=== PATIENT | male | born 1970 | race Caucasian/White ===

== ENCOUNTER → 2016-09-07 | Outpatient (CLI) | payer BC ==
--- NOTE | 2016-09-07 16:39 | XR ---
EXAMINATION TYPE: XR chest special view(s) DATE OF EXAM: 09/07/2016 COMPARISON: 09/04/2016 HISTORY: Abnormal x-ray TECHNIQUE: Frontal and lateral views of the chest are obtained. FINDINGS: There is a stable appearing right-sided pneumothorax measuring approximately 5-10%. There is increase in size and expiration measuring 15%. Left lung is clear there does appear to be tiny rig ht-sided pleural effusion. No interstitial edema. Heart size stable. IMPRESSION: 1. There is a small right-sided pneumothorax with no mediastinal deviation. Measures 5-10% on inspira tion and increases to 15% on expiration. Correlate clinically. No mediastinal deviation.
== END ==
LOC: RADXRMAIN 16:10
PROVIDERS: ATTEND Family Medicine
DX: J93.9 Pneumothorax, unspecified (principal)
CPT/HCPCS: 71035

== ENCOUNTER 2016-12-14 09:40 | Emergency (ER) | payer BC ==
[2016-12-14 09:46] VITALS: TEMP 97.8
[2016-12-14] MEDS ORDERED: SODIUM CHLORIDE 0.9% 1,000 ML IV STA (10:06)
--- NOTE | 2016-12-14 10:11 | ED ---
General Adult HPI - General Source: patient, RN notes reviewed Mode of arrival: ambulatory Limitations: no limitations <Trevor Patel - Last Filed: 12/14/16 11:48> <Russ Ferrell - Last Filed: 12/14/16 20:38> - General Chief complaint: Recheck/Abnormal Lab/Rx Stated complaint: Abnormal CT sent by PCP Time Seen by Provider: 12/14/16 09:51 - History of Present Illness Initial comments: Patient is a 46-year-old male who presents emergency room today with a chief complaint of having an abnormal CAT scan obtained earlier this morning. He states he was on his way to work when he was called and. Come back to the emergency room. His CT report. Patient states she's been experiencing some cough congestion over the last 2 weeks. He doesn't speak production as been clear in color. He admits that at times she's been expressing some chest pain. He states that last anywhere from a few minutes to approximately 10 appointment. Mostly in the left side of his chest wall both anteriorly and posteriorly at times. Patient denies anything that seems to make it better or worse. He denies any other complaints. He states is not having any pain or discomfort at this time. Patient denies any recent fever, chills, shortness of breath, back pain, abdominal pain, nausea or vomiting, numbness or tingling, dysuria or hematuria, constipation or diarrhea, headaches or visual changes, or any other complaints. (Trevor Patel) - Related Data Home Medications Medication Instructions Recorded Confirmed Levofloxacin [Levaquin] 500 mg PO DAILY 12/14/16 12/14/16 Allergies Allergy/AdvReac Type Severity Reaction Status Date / Time No Known Allergies Allergy Verified 12/14/16 09:53 Review of Systems ROS Other: All systems not noted in ROS Statement are negative. <Trevor Patel - Last Filed: 12/14/16 11:48> ROS Other: All systems not noted in ROS Statement are negative. <Russ Ferrell - Last Filed: 12/14/16 20:38> ROS Statement: Those systems with pertinent positive or pertinent negative responses have been documented in the HPI. Past Medical History Additional Past Medical History / Comment(s): collapsed left lung, pneumonia History of Any Multi-Drug Resistant Organisms: None Reported Past Surgical History: Tonsillectomy Past Psychological History: No Psychological Hx Reported Smoking Status: Never smoker Past Alcohol Use History: None Reported Past Drug Use History: None Reported <Trevor Patel - Last Filed: 12/14/16 11:48> General Exam Limitations: no limitations <Trevor Patel - Last Filed: 12/14/16 11:48> <Russ Ferrell - Last Filed: 12/14/16 20:38> - General Exam Comments Initial Comments: General: The patient is awake and alert, in no distress, and does not appear acutely ill. Eye: Pupils are equal, round and reactive to light, extra-ocular movements are intact. No nystagmus. There is normal conjunctiva bilaterally. No signs of icterus. Ears, nose, mouth and throat: There are moist mucous membranes and no oral lesions. Neck: The neck is supple, there is no tenderness or JVD. Cardiovascular: There is a regular rate and rhythm. No murmur, rub or gallop is appreciated. Respiratory: Lungs are clear to auscultation, respirations are non-labored, breath sounds are equal. No wheezes, stridor, rales, or rhonchi. Gastrointestinal: Soft, non-distended, non-tender abdomen without masses or organomegaly noted. There is no rebound or guarding present. No CVA tenderness. Bowel sounds are unremarkable. Musculoskeletal: Normal ROM, no tenderness. Strength 5/5. Sensation intact. Pulses equal bilaterally 2+. Neurological: A&O x 3. CN II-XII intact, There are no obvious motor or sensory deficits. Coordination appears grossly intact. Speech is normal. Skin: Skin is warm and dry and no rashes or lesions are noted. Psychiatric: Cooperative, appropriate mood & affect, normal judgment. (Trevor Patel) Course <Trevor Patel - Last Filed: 12/14/16 11:48> <Russ Ferrell - Last Filed: 12/14/16 20:38> Vital Signs 12/14/16 12/14/16 12/14/16 09:42 11:45 12:15 Temperature 97.8 F Pulse Rate 72 79 71 Respiratory 18 16 16 Rate Blood Pressure 136/95 114/59 112/71 O2 Sat by Pulse 99 100 99 Oximetry - Reevaluation(s) Reevaluation #1: 12/14/16 10:10 Patient examined here the emergency room shows no signs of distress. His computed tomography scan has been reviewed shows 1. Numerous large blebs are seen scattered throughout the lungs bilaterally. However there appeared to be evidence of a pneumomediastinum. A Tiny Right-Sided Pneumothorax along the Medial Aspect along. Approximate 5%. Patient Has Been Placed on a Nonrebreather Here in Emergency Room. He Has No Complaints Currently. Labs Are Pending. (Trevor Patel) Medical Decision Making - Lab Data Result diagrams: 12/14/16 10:10 12/14/16 10:10 <Trevor Patel - Last Filed: 12/14/16 11:48> - Lab Data Result diagrams: 12/14/16 10:10 12/14/16 10:10 <Russ Ferrell - Last Filed: 12/14/16 20:38> - Medical Decision Making Patient reexamined at this time shows no signs of distress. He was seen by attending physician Dr. Chen. The emergency room who did discuss the case with gore inserter on-call Dr. Cali. States that patient's vitals are stable.. He is pain-free. He does have a history of a pneumothorax several years ago with chest tube placed had a 5% pneumothorax just a few months ago back in September 2016. His CT shows findings of a stable pneumothorax with some pneumomediastinum. At this time is felt that he is able to be discharged home and follow-up with gore inserter in the office. (Trevor Patel) 46-year-old male with history of spontaneous pneumothorax presenting with presents from outpatient CT. Patient does have small pneumothorax as well as mediastinal air. Patient's primary care physician was unable to evaluate the CT findings because he is out of toe. Patient was asked to present to the emergency department. Patient has no complaints. He has a history of pneumothorax with small 5-10% residual. No chest pain. No difficulty breathing. I reviewed the CT results with Dr. Cali, he does not believe there is pneumothorax. He is not concerned about mediastinal air. He is to evaluate the patient on an outpatient basis. Patient is agreeable with this plan. (Russ Ferrell) - Lab Data Lab Results 12/14/16 12/14/16 12/14/16 Range/Units 10:10 10:10 10:10 WBC 6.5 (3.8-10.6) k/uL RBC 5.28 (4.30-5.90) m/uL Hgb 15.9 (13.0-17.5) gm/dL Hct 46.5 (39.0-53.0) % MCV 88.0 (80.0-100.0) fL MCH 30.1 (25.0-35.0) pg MCHC 34.2 (31.0-37.0) g/dL RDW 14.0 (11.5-15.5) % Plt Count 284 (150-450) k/uL Neutrophils % 60 % Lymphocytes % 26 % Monocytes % 6 % Eosinophils % 6 % Basophils % 1 % Neutrophils # 3.9 (1.3-7.7) k/uL Lymphocytes # 1.7 (1.0-4.8) k/uL Monocytes # 0.4 (0-1.0) k/uL Eosinophils # 0.4 (0-0.7) k/uL Basophils # 0.1 (0-0.2) k/uL PT 10.3 (9.0-12.0) sec INR 1.0 (<1.2) APTT 25.2 (22.0-30.0) sec Sodium 142 (137-145) mmol/L Potassium 3.9 (3.5-5.1) mmol/L Chloride 106 (98-107) mmol/L Carbon Dioxide 24 (22-30) mmol/L Anion Gap 12 mmol/L BUN 13 (9-20) mg/dL Creatinine 0.93 (0.66-1.25) mg/dL Est GFR (MDRD) Af Amer >60 (>60 ml/min/1.73 sqM) Est GFR (MDRD) Non-Af >60 (>60 ml/min/1.73 sqM) Glucose 117 H (74-99) mg/dL Calcium 9.5 (8.4-10.2) mg/dL Total Bilirubin 0.6 (0.2-1.3) mg/dL AST 21 (17-59) U/L ALT 33 (21-72) U/L Alkaline Phosphatase 73 (38-126) U/L Troponin I (0.000-0.034) ng/mL Total Protein 6.9 (6.3-8.2) g/dL Albumin 4.4 (3.5-5.0) g/dL 12/14/16 Range/Units 10:10 WBC (3.8-10.6) k/uL RBC (4.30-5.90) m/uL Hgb (13.0-17.5) gm/dL Hct (39.0-53.0) % MCV (80.0-100.0) fL MCH (25.0-35.0) pg MCHC (31.0-37.0) g/dL RDW (11.5-15.5) % Plt Count (150-450) k/uL Neutrophils % % Lymphocytes % % Monocytes % % Eosinophils % % Basophils % % Neutrophils # (1.3-7.7) k/uL Lymphocytes # (1.0-4.8) k/uL Monocytes # (0-1.0) k/uL Eosinophils # (0-0.7) k/uL Basophils # (0-0.2) k/uL PT (9.0-12.0) sec INR (<1.2) APTT (22.0-30.0) sec Sodium (137-145) mmol/L Potassium (3.5-5.1) mmol/L Chloride (98-107) mmol/L Carbon Dioxide (22-30) mmol/L Anion Gap mmol/L BUN (9-20) mg/dL Creatinine (0.66-1.25) mg/dL Est GFR (MDRD) Af Amer (>60 ml/min/1.73 sqM) Est GFR (MDRD) Non-Af (>60 ml/min/1.73 sqM) Glucose (74-99) mg/dL Calcium (8.4-10.2) mg/dL Total Bilirubin (0.2-1.3) mg/dL AST (17-59) U/L ALT (21-72) U/L Alkaline Phosphatase (38-126) U/L Troponin I <0.012 (0.000-0.034) ng/mL Total Protein (6.3-8.2) g/dL Albumin (3.5-5.0) g/dL Disposition Time of Disposition: 11:50 <Trevor Patel - Last Filed: 12/14/16 11:48> <Russ Ferrell N - Last Filed: 12/14/16 20:38> Clinical Impression: Pneumomediastinum Disposition: HOME SELF-CARE Condition: Good Instructions: Spontaneous Pneumothorax (ED) Additional Instructions: Please follow-up with gore inserter in the next 1-2 days as discussed. Please return here to the emergency room if any symptoms return or increase or worsen. Referrals: Javi Noble MD [Primary Care Provider] - 1-2 days Kaitlyn Cali MD [STAFF PHYSICIAN] - 1-2 days Addendum entered and electronically signed by Trevor Patel PA-C 12/14/16 11: 51: EKG performed at 0948: A 12-lead EKG was performed and interpreted by me as showing the following: Rate is 85, and rhythm is normal sinus. There are normal QRS complexes and normal R-wave progression. ST segments have no elevation or depression, and LA segments appear normal.
[2016-12-14 10:34] LABS: Basophils # (A) 0.1 k/uL (0-0.2); Basophils % (A) 1 %; CH 31.4; CHCM 35.8; Eosinophils # (A) 0.4 k/uL (0-0.7); Eosinophils % (A) 6 %; HCT 46.5 % (39.0-53.0); HDW 2.85; HGB 15.9 gm/dL (13.0-17.5); Luc # (Auto) 0.07; Luc % (Auto) 1; Lymphocytes # (A) 1.7 k/uL (1.0-4.8); Lymphocytes % (A) 26 %; MCH 30.1 pg (25.0-35.0); MCHC 34.2 g/dL (31.0-37.0); Mean Platelet Volume 6.8; Monocytes # (A) 0.4 k/uL (0-1.0); Monocytes % (A) 6 %; Neutrophils # (A) 3.9 k/uL (1.3-7.7); Neutrophils % (A) 60 %; RBC 5.28 m/uL (4.30-5.90); WBC 6.5 k/uL (3.8-10.6); WBC (Perox) 6.28
[2016-12-14 10:47] LABS: Partial Thromboplastin Time 25.2 sec (22.0-30.0); Prothrombin Time 10.3 sec (9.0-12.0)
[2016-12-14 10:53] LABS: ALT 33 U/L (21-72); AST 21 U/L (17-59); Alkaline Phosphatase 73 U/L (38-126); Anion Gap 12 mmol/L; Blood Urea Nitrogen 13 mg/dL (9-20); Calcium 9.5 mg/dL (8.4-10.2); Carbon Dioxide 24 mmol/L (22-30); Chloride 106 mmol/L (98-107); Glucose 117 mg/dL (74-99); Non-African American GFR(MDRD) >60 (>60 ml/min/1.73 sqM); Potassium 3.9 mmol/L (3.5-5.1); Sodium 142 mmol/L (137-145); Total Bilirubin 0.6 mg/dL (0.2-1.3); Total Protein 6.9 g/dL (6.3-8.2)
--- NOTE | 2016-12-14 11:06 | XR ---
EXAMINATION TYPE: XR chest 2V DATE OF EXAM: 12/14/2016 COMPARISON: Prior chest x-ray 01/08/2013, 09/07/[address] 12/14/2016 HISTORY: Pain TECHNIQUE: Frontal and lateral views of the chest are obtained. FINDINGS: Lung disease again noted as on CT. Patient's pneumomediastinum is not as well-seen as on C T. No evident pneumothorax or pleural effusion. Cardiomediastinal silhouette within normal limits. Th ere are overlying cardiac leads. IMPRESSION: See report of chest CT same date.
[2016-12-14 11:48] VITALS: RESP 16
[2016-12-14 12:16] VITALS: BP 112/71; PULSE 71
== END 2016-12-14 12:16 | disposition home or self-care (01) ==
LOC: EC 09:40
DX: J98.2 Interstitial emphysema (principal); Z87.01 Personal history of pneumonia (recurrent); Z90.89 Acquired absence of other organs
CPT/HCPCS: 36415; 71020; 80053; 84484; 85025; 85610; 85730; 93005; 96360; 96361; 99284

== ENCOUNTER → 2016-12-14 | Outpatient (CLI) | payer BC ==
--- NOTE | 2016-12-14 08:35 | CT ---
"EXAMINATION TYPE: CT chest w con DATE OF EXAM: 12/14/2016 COMPARISON: NONE HISTORY: Pain, cough CT DLP: 555.3 mGycm Automated exposure control for dose reduction was used. CONTRAST: CT scan of the chest is performed with IV Contrast, patient injected with 100 mL of Omnipaque 300. FINDINGS: LUNGS: Posterior there is pleural-based thickening bilaterally. There is large bulla or blebs noted b ilaterally compatible with COPD. Tiny right pleural effusion. Could not exclude a tiny pneumothorax. No sizable pulmonary nodule. MEDIASTINUM: There is evidence of pneumomediastinum air seen within the mediastinal fat on multiple i mages. A large bleb is seen immediately adjacent. OTHER: Hypertrophic change of the spine noted. 5 mm nonobstructing left renal calculus noted. IMPRESSION: 1. Numerous large blebs are seen scattered throughout the lungs bilaterally. However, there appears t o be evidence of pneumomediastinum. Referring physician immediately notified. Cannot exclude a tiny r ight-sided pneumothorax along the medial aspect of the lung on axial image 33 measuring approximatel y 5%. Referring physician notified. 2. 5 mm nonobstructing. A Red message has been communicated to Javi Noble MD via the [employer] | Critical Result sy stem on 12/14/2016 8:26 AM, Message ID [id number]."
== END ==
LOC: RADCTMAIN 07:44
PROVIDERS: ATTEND Family Medicine
DX: R91.8 Other nonspecific abnormal finding of lung field (principal)
CPT/HCPCS: 71260; Q9967

== ENCOUNTER 2020-08-26 10:29 | Day surgery (SDC) | payer OTHER ==
[2020-08-24 15:21] VITALS: BMI 31.5
[~2020-08-26 10:29] MED LIST: LACTATED RINGERS 1,000 ML IV SCH
[2020-08-26 10:53] VITALS: TEMP 98.1
[2020-08-26] MEDS ORDERED: PROPOFOL 10 MG/ML 20 ML VIAL IV ONE (11:48)
[2020-08-26] MEDS ORDERED: LIDOCAINE 1% INJ 10MG/ML (20 ML MDV) ONE (11:48)
[2020-08-26] MEDS ORDERED: GLYCOPYRROLATE 0.2 MG/ML 2 ML VIAL ONE (11:48)
--- NOTE | 2020-08-26 12:04 | P.PCN ---
Date of Procedure: 08/26/20 Procedure(s) Performed: BRIEF HISTORY: Patient is a 50-year-old pleasant white male scheduled for an elective colonoscopy as a part of screening for colorectal neoplasia. PROCEDURE PERFORMED: Colonoscopy. PREOPERATIVE DIAGNOSIS: Screening for colon cancer. IV sedation per Anesthesia. PROCEDURE: After informed consent was obtained, the patient, was brought into the endoscopy unit. IV sedation was administered by Anesthesia under continuous monitoring. Digital rectal examination was normal. Initially the Olympus CF-160 flexible video colonoscope was then inserted in the rectum, gradually advanced into the cecum without any difficulty. Careful examination was performed as the scope was gradually being withdrawn. Ileocecal valve and the appendiceal orifice were visualized and appeared normal. Prep was excellent. Mucosa of the cecum, ascending colon, transverse colon, descending colon, sigmoid colon, and rectum appeared normal. Retroflexion was performed in the rectum and no lesions were seen. The patient tolerated the procedure well. IMPRESSION: Normal-appearing colon from rectum to cecum with no evidence of colorectal neoplasia. RECOMMENDATIONS: Findings of this examination were discussed with the patient as well as his family. He was advised to have a repeat screening colonoscopy in 10 years.
[2020-08-26 12:20] VITALS: BP 109/75; PULSE 79; RESP 17
== END 2020-08-26 12:44 | disposition home or self-care (01) ==
LOC: ORWHC2ENDO 10:29
PROVIDERS: ATTEND Internal Medicine Gastroenterology
DX: Z12.11 Encounter for screening for malignant neoplasm of colon (principal)
CPT/HCPCS: J2001; J2704; G0121; 45378

== ENCOUNTER → 2022-09-17 | Outpatient (CLI) | payer OTHER ==
--- NOTE | 2022-09-17 14:38 | US ---
EXAMINATION TYPE: US kidneys/renal and bladder DATE OF EXAM: 09/17/2022 COMPARISON: NONE CLINICAL INDICATION: Male, 52 years old with history of M54.9, N23 RENAL COLIC, DORSALGIA; family Hx of [id number] syndrome. EXAM MEASUREMENTS: Right Kidney: 13.5 x 5.9 x 5.2 cm Left Kidney: 14.5 x 4.6 x 3.8 cm Right Kidney: No hydronephrosis or masses seen Left Kidney: No hydronephrosis or masses seen Bladder: anechoic Bilateral Jets seen: yes There is no evidence for hydronephrosis at this point in time. No nephrolithiasis is seen. Corticom edullary differentiation is maintained bilaterally. lobulations involving both kidneys. No mass es are identified. The urinary bladder is anechoic. Bilateral ureteral jets are seen. IMPRESSION: No hydronephrosis or nephrolithiasis. No ultrasound evidence for renal masses.
== END | disposition home or self-care (01) ==
LOC: RADUSWWP 14:04
PROVIDERS: ATTEND Family Medicine
DX: N23 Unspecified renal colic (principal); M54.9 Dorsalgia, unspecified
CPT/HCPCS: 76770